=== PATIENT | male | born 1975 | race Caucasian/White ===

== ENCOUNTER 2017-05-31 20:13 | Emergency (ER) | payer MEDICAID, OTHER ==
[~2017-05-31] VITALS: Ht 165.1 cm; Wt 62.6 kg
[~2017-05-31 20:13] MED LIST: HUM SUBQ; LANTUS SUBQ
[2017-05-31 20:15] VITALS: BP 107/73
[2017-05-31] MEDS ORDERED: LACTATED RINGERS 1,000 ML IV ONE (20:40)
[2017-05-31] MEDS ORDERED: NACL 0.9% 1,000 ML IV ONE ×2 (20:40→22:30)
[2017-05-31 21:21] LABS: BASOPHILS # (AUTO) 0.3 K/uL (0.00-0.22); EOSINOPHILS # (AUTO) 0.1 K/uL (0-0.4); HEMATOCRIT 41.5 % (36-52); HEMOGLOBIN 14.1 g/dL (12.0-18.0); LYMPHOCYTES # (AUTO) 1.3 K/uL (2.0-11.5); MEAN CORPUSCULAR HEMOGLOBIN 31 pg (27-31); MEAN CORPUSCULAR HGB CONC 34 g/dL (33-37); MEAN CORPUSCULAR VOLUME 92 fL (80-94); MONOCYTES # (AUTO) 0.7 K/uL (0.8-1.0); NEUTROPHILS # (AUTO) 5.8 K/uL (1.8-7.7); PLATELET COUNT (AUTO) 262 K/uL (140-450); RED BLOOD CELL COUNT(AUTO) 4.52 MIL/uL (4.20-6.10); RED CELL DISTRIBUTION WIDTH 11.7 % (11.6-13.7); WHITE BLOOD COUNT (AUTO) 8.2 K/uL (4.8-10.8)
[2017-05-31 21:26] LABS: ANION GAP 10.6 (8-16); CARBON DIOXIDE 28.5 mmol/L (21-32); CREATININE 1.1 mg/dL (0.7-1.3); POTASSIUM 4.1 mmol/L (3.5-5.1)
[2017-05-31 21:32] LABS: ALBUMIN 3.4 g/dL (3.4-5.0); TOTAL BILIRUBIN 0.5 mg/dL (0.0-1.0)
[2017-05-31 21:46] LABS: PROTHROMBIN TIME 10.4 secs (10.8-13.4)
[2017-05-31 22:56] LABS: BARBITURATE, URINE NEGATIVE ng/ml (NEG <=200); BENZODIAZEPINE, URINE NEGATIVE ng/mL (NEG <=200); CANNABINOID, URINE NEGATIVE ng/mL (NEG <=50); COCAINE, URINE NEGATIVE ng/mL (NEG <=300); OPIATE, URINE NEGATIVE ng/mL (NEG <=2000); PHENCYCLIDINE SCREEN,URINE NEGATIVE ng/mL (NEG <=25)
[2017-06-01 00:34] VITALS: BP 138/99
== END 2017-05-31 23:15 | disposition home or self-care (01) ==
LOC: MED 20:13
DX: R55 Syncope and collapse (principal); C62.92 Malignant neoplasm of left testis, unspecified whether descended or undescended; E86.0 Dehydration; F15.10 Other stimulant abuse, uncomplicated; E11.9 Type 2 diabetes mellitus without complications; Z79.4 Long term (current) use of insulin
CPT/HCPCS: 36415; 71010; 80053; 80305; 82948; 83880; 84484; 85025; 85610; 85730; 93005; 96360; 96361; 99285; J7120; Q0092; J7030